=== PATIENT | female | born 1990 | race Caucasian/White ===

== ENCOUNTER 2023-09-25 09:53 | Emergency (ER) | payer MEDICAID, OTHER ==
[~2023-09-25] VITALS: Ht 157.5 cm; Wt 61.0 kg
[2023-09-25 09:57] VITALS: O2SAT 100
[2023-09-25 10:54] LABS: HEMATOCRIT. 37.5 % (36.0-48.0); HEMOGLOBIN. 12.9 g/dL (12.0-16.0); MEAN CORPUSCULAR HEMOGLOBIN 34.5 pg (28.0-32.0); MEAN CORPUSCULAR HGB CONC 34.4 g/dL (31.0-37.0); MEAN CORPUSCULAR VOLUME 100.4 fL (81.0-99.0); MEAN PLATELET VOLUME 8.1 fl (7.4-10.4); PLATELET 266 x1000/uL (130-400); RED BLOOD CELL COUNT 3.73 mill/uL (4.2-5.4); RED CELL DISTRIBUTION WIDTH 16.3 % (11.6-14.6); WHITE BLOOD COUNT 12.3 x1000/uL (4.5-11.0)
[2023-09-25] MEDS: MORPHINE SULFATE 4 MG/ML INJ (FOR IV/IM USE) IV STA (10:54)
[2023-09-25] MEDS: SODIUM CHLORIDE 0.9% 1,000 ML IV ONE (10:54)
[2023-09-25 10:58] LABS: DIFFERENTIAL COMMENT 1
[2023-09-25 11:01] LABS: CARBON DIOXIDE 23 mEq/L (21-32); CHLORIDE 99 mEq/L (98-107); POTASSIUM 2.9 mEq/L (3.5-5.1); SODIUM 136 mEq/L (136-145)
[2023-09-25 11:08] LABS: ALANINE AMINOTRANSFERASE 36 IU/L (10-49); ASPARTATE AMINOTRANSFERASE 68 IU/L (<34)
[2023-09-25 11:09] LABS: ALBUMIN 4.3 g/dL (3.2-4.8); PROTEIN TOTAL 7.3 g/dL (6.0-8.3)
[2023-09-25 11:11] LABS: CALCIUM 9.9 mg/dL (8.7-10.4)
[2023-09-25 11:16] LABS: CREATININE 0.8 mg/dL (0.6-1.0); GLUCOSE 110 mg/dL (70-105); UREA NITROGEN BLOOD 9 mg/dL (9-23)
[2023-09-25] MEDS: LORAZEPAM 2MG/ML INJ IV ONE ×3 (11:36→15:08)
[2023-09-25] MEDS: POTASSIUM CHLORIDE 20MEQ/PACKET PO ONE (13:17)
[2023-09-25 13:26] LABS: ANISOCYTOSIS 1+; PLATELET ESTIMATE NORMAL
[2023-09-25] MEDS: CHLORDIAZEPOXIDE 25MG CAPSULE PO ONE (14:54)
[2023-09-25] MEDS: FOLIC ACID 1 MG, THIAMINE HCL 100 MG, MVI, ADULT NO.1 10 ML in DEXTROSE 5% WATER 1,000 ML IV ONE (14:54)
[2023-09-25] MEDS: POTASSIUM CHLORIDE 20MEQ TABLET SR PO ONE (14:57)
[2023-09-25 16:14] VITALS: BP 103/60; PULSE 108; RESP 20; TEMP 99.1
== END 2023-09-25 16:24 | disposition short-term general hospital (02) ==
LOC: ER 09:53 → CANBEDREQ 14:00 → ER 16:24
DX: F10.239 Alcohol dependence with withdrawal, unspecified (principal); F12.10 Cannabis abuse, uncomplicated; Y90.9 Presence of alcohol in blood, level not specified
CPT/HCPCS: 80053; 83880; 85025; 36415; 71045; 93005; 96365; 96375; 96376; 99285; J3490 ×2; J2060; J3411; J2270; J7070; J7030; Z7610 ×2